=== PATIENT | female | born 1960 | race Caucasian/White ===

== ENCOUNTER → 2018-11-26 | Outpatient (CLI) | payer OTHER ==
[~2018-11-26] MED LIST: ASPI81EC; CALGLU500; CLON1; CLON2; IBUP600; INVEGA; METF500; MIRT15; MIRT30; PIOG15; RISP3; VALS80; VENL75; VENL75ER; [UNRECOGNIZED DRUG - OTHER]; [UNRECOGNIZED DRUG - REMARK]; [UNRECOGNIZED DRUG - REMARK]
== END ==
LOC: LAB SHORT 13:46 → PLD 13:46
DX: L57.0 Actinic keratosis (principal)
CPT/HCPCS: 88305

== ENCOUNTER 2019-01-17 16:14 | Emergency (ER) | payer OTHER ==
[~2019-01-17] VITALS: Ht 170.2 cm; Wt 131.5 kg
[2019-01-17 16:49] LABS: BASOPHILS ABSOLUTE AUTO 0.05 K/mm3 (0.00-0.23); BASOPHILS PERCENT AUTO 0 % (0-2); EOSINOPHILS PERCENT AUTO 0 % (0-6); Hematocrit 43.9 % (33.0-51.0); Hemoglobin 13.4 g/dL (11.5-16.0); IMMATURE GRAN ABSOLUTE AUTO 0.14 K/mm3 (0.00-0.10); IMMATURE GRAN PERCENT AUTO 1 % (0-1); LYMPHOCYTES ABSOLUTE AUTO 2.05 K/mm3 (0.84-5.20); LYMPHOCYTES PERCENT AUTO 13 % (21-46); MONOCYTES ABSOLUTE AUTO 0.91 K/mm3 (0.16-1.47); MONOCYTES PERCENT AUTO 6 % (4-13); Mean Corpuscular HGB 30.1 pg (26.0-34.0); Mean Corpuscular HGB Conc 30.5 g/dL (31.5-36.5); NEUTROPHILS ABSOLUTE AUTO 13.21 K/mm3 (1.96-9.15); NEUTROPHILS PERCENT AUTO 81 % (41-73); Platelet Count 237 K/mm3 (150-400); RDW Coefficient Variation 14.5 % (11.7-14.2); RDW Standard Deviation 52.6 fL (35.1-46.3); Red Blood Cell Count 4.45 M/mm3 (3.80-5.20); White Blood Cell Count 16.36 K/mm3 (4.00-11.30)
[2019-01-17 17:18] LABS: Alanine Aminotransfer (ALT/SGP 26 U/L (12-78); Albumin, Blood 3.3 g/dL (3.4-5.0); Albumin/Globulin Ratio 0.8 (0.8-1.8); Alk Phos 112 U/L (50-136); Anion Gap 10 mmol/L (6-16); Aspartate Aminotrans (AST/SGOT 20 U/L (12-37); Bilirubin, Total 0.3 mg/dL (0.1-1.0); Blood Urea Nitrogen 11 mg/dL (8-24); Bun/Creatinine Ratio 12.8 (12.0-20.0); CO2, Blood 23 mmol/L (21-32); Calcium, Blood 9.6 mg/dL (8.5-10.1); Chloride, Blood 104 mmol/L (98-108); Creatinine, Blood 0.86 mg/dL (0.40-1.00); Globulin, Blood 3.9 g/dL (2.2-4.0); Glomerular Filtration Rate >60 (60-); Glucose, Blood 166 mg/dL (70-99); Mean Corpuscular Volume 99 fL (80-100); Potassium, Blood 4.2 mmol/L (3.5-5.5); Sodium, Blood 137 mmol/L (136-145); Total Protein, Blood 7.2 g/dL (6.4-8.2)
[2019-01-17] MEDS ORDERED: INSULANPEN (17:42)
[2019-01-17] MEDS ORDERED: VENL150ER PO (17:42)
[2019-01-17] MEDS ORDERED: LISI5 PO (17:42)
[2019-01-17] MEDS ORDERED: CLOZ100 PO (17:42)
[2019-01-17] MEDS ORDERED: Pravachol40 MG PO (17:42)
[2019-01-17] MEDS ORDERED: NAC600 MG PO (17:42)
[2019-01-17] MEDS ORDERED: PALIPERIDONE ER9 MG PO (17:42)
[2019-01-17] MEDS ORDERED: ERGO400 PO (17:49)
[2019-01-17] MEDS ORDERED: LEVSOD150 PO (17:50)
[2019-01-17] MEDS ORDERED: Aspir 8181 MG PO (17:50)
[2019-01-17] MEDS ORDERED: TRAZ100 PO (17:52)
[2019-01-17] MEDS ORDERED: Humalog100 UNIT/1 (17:55)
[2019-01-17] MEDS ORDERED: Flagyl500 MG PO (19:30)
[2019-01-17] MEDS ORDERED: CIPR500 PO (19:30)
== END 2019-01-17 19:45 | disposition home or self-care (01) ==
LOC: ER 16:14
PROVIDERS: Physician Assistant
DX: A09 Infectious gastroenteritis and colitis, unspecified (principal); F17.210 Nicotine dependence, cigarettes, uncomplicated
CPT/HCPCS: 36415; 74177; 80053; 83690; 85025; 96361-59; 96374-59; 99284-25; A9270-GY; C9113; J7030; Q9967

== ENCOUNTER → 2019-01-23 | Outpatient (CLI) | payer OTHER ==
[~2019-01-23] MED LIST changes: +Aspir 8181 MG PO; +CIPR500 PO; +CLOZ100 PO; +ERGO400 PO; +Flagyl500 MG PO; +Humalog100 UNIT/1; +INSULANPEN; +LEVSOD150 PO; +LISI5 PO; +NAC600 MG PO; +PALIPERIDONE ER9 MG PO; +Pravachol40 MG PO; +TRAZ100 PO; +VENL150ER PO
[2019-01-23 11:37] LABS: Appearance, Urine Hazy (Clear); Bilirubin, Urine Neg (Neg); Blood, Urine Neg (Neg); Color, Urine Yellow (P-Yellow); Glucose Qualitative, Urine Neg (Neg); Ketones, Urine Neg (Neg); Leukocyte Esterase, Urine 3+ (Neg); Nitrite, Urine Neg (Neg); Protein, Urine Neg (Neg); Specific Gravity, Urine 1.015 (1.003-1.022); Urobilinogen, Urine NORM (Normal)
[2019-01-23 11:58] LABS: Bacteria Mod /hpf; Red Blood Cells, Urine 0-2 /hpf (0-2); Squamous Epithelial Cells Mod /hpf (Few)
[2019-01-23 14:02] LABS: Adenovirus F 40/41 Not Detected (NOT DETECT); Astrovirus Not Detected (NOT DETECT); Campylobacter Sp Not Detected (NOT DETECT); Cryptosporidium Not Detected (NOT DETECT); Cyclospora Cayetanensis Not Detected (NOT DETECT); E. Coli O157 Not Detected (NOT DETECT); Entamoeba Histolytica Not Detected (NOT DETECT); Enteroaggregative E. coli-EAEC Not Detected (NOT DETECT); Enteropathogenic E. coli-EPEC Not Detected (NOT DETECT); Enterotoxigenic E. coli-ETEC Not Detected (NOT DETECT); Giardia Lamblia Not Detected (NOT DETECT); Norovirus GI/GII Not Detected (NOT DETECT); Plesiomonas Shigelloides Not Detected (NOT DETECT); Rotavirus A Not Detected (NOT DETECT); Salmonella Sp Not Detected (NOT DETECT); Sapovirus Not Detected (NOT DETECT); Shiga Toxin-prod E. coli-STEC Not Detected (NOT DETECT); Shigella/Enteroin E. coli-EIEC Not Detected (NOT DETECT); Vibrio Cholerae Not Detected (NOT DETECT); Vibrio Sp Not Detected (NOT DETECT); Yersinia Enterocolitica Not Detected (NOT DETECT)
== END ==
LOC: LAB 11:08 → LAB SHORT 11:08
PROVIDERS: Nurse Practitioner Family
DX: R19.7 Diarrhea, unspecified (principal); R82.90 Unspecified abnormal findings in urine
CPT/HCPCS: 81001; 87086; 87507

== ENCOUNTER → 2019-03-30 | Outpatient (CLI) | payer OTHER | END | disposition home or self-care (01) | LOC: LAB SHORT 09:00 → LAB 09:00 | DX: R39.15 Urgency of urination (principal) | CPT/HCPCS: 87077; 87086; 87186 ==

== ENCOUNTER → 2019-04-17 | Outpatient (CLI) | payer OTHER ==
[2019-04-17 13:51] LABS: Campylobacter Sp Not Detected (NOT DETECT)
[2019-04-17 13:52] LABS: Adenovirus F 40/41 Not Detected (NOT DETECT); Astrovirus Not Detected (NOT DETECT); Cryptosporidium Not Detected (NOT DETECT); Cyclospora Cayetanensis Not Detected (NOT DETECT); E. Coli O157 Not Detected (NOT DETECT); Entamoeba Histolytica Not Detected (NOT DETECT); Enteroaggregative E. coli-EAEC Not Detected (NOT DETECT); Enteropathogenic E. coli-EPEC Not Detected (NOT DETECT); Enterotoxigenic E. coli-ETEC Not Detected (NOT DETECT); Giardia Lamblia Not Detected (NOT DETECT); Norovirus GI/GII Not Detected (NOT DETECT); Plesiomonas Shigelloides Not Detected (NOT DETECT); Rotavirus A Not Detected (NOT DETECT); Salmonella Sp Not Detected (NOT DETECT); Sapovirus Not Detected (NOT DETECT); Shiga Toxin-prod E. coli-STEC Not Detected (NOT DETECT); Shigella/Enteroin E. coli-EIEC Not Detected (NOT DETECT); Vibrio Cholerae Not Detected (NOT DETECT); Vibrio Sp Not Detected (NOT DETECT); Yersinia Enterocolitica Not Detected (NOT DETECT)
== END | disposition home or self-care (01) ==
LOC: LAB SHORT 08:02 → LAB 08:02
PROVIDERS: Nurse Practitioner Family
DX: R19.7 Diarrhea, unspecified (principal); R10.9 Unspecified abdominal pain
CPT/HCPCS: 0097U; 87324

== ENCOUNTER → 2019-04-29 | Outpatient (CLI) | payer OTHER | END | disposition home or self-care (01) | LOC: LAB 11:30 → LAB SHORT 11:30 | DX: R39.15 Urgency of urination (principal) | CPT/HCPCS: 87077; 87086; 87186 ==

== ENCOUNTER → 2019-05-15 | Outpatient (CLI) | payer OTHER ==
[2019-05-15 12:01] LABS: Creatinine, Urine Random 67.3 mg/dL (27.00-270.00)
[2019-05-15 12:03] LABS: Microalb/Creat Ratio UR, Rand 8.574 mg/g (0.000-30.000); Microalbumin, Random Urine 5.77 mg/L (0.000-20.000)
== END ==
LOC: LAB 10:01 → LAB SHORT 10:01
PROVIDERS: Nurse Practitioner Family
DX: E11.9 Type 2 diabetes mellitus without complications (principal)
CPT/HCPCS: 82043; 82570

== ENCOUNTER → 2019-06-04 | Outpatient (CLI) | payer OTHER | END | disposition home or self-care (01) | LOC: LAB SHORT 10:03 → LAB 10:03 | PROVIDERS: Nurse Practitioner Family | DX: Z12.4 Encounter for screening for malignant neoplasm of cervix (principal) | CPT/HCPCS: G0145 ==

== ENCOUNTER 2019-07-23 07:15 | Day surgery (SDC) | payer OTHER ==
[~2019-07-23] VITALS: Ht 170.2 cm; Wt 124.5 kg
[~2019-07-23 07:15] MED LIST changes: +ATOR40TA PO; +DULO30 PO; +PALI6TA PO
--- NOTE | 2019-07-23 08:04 | NUR ---
Ambulatory in Day Surgery History, Chart, Medications and Allergies reviewed before start of procedure.Lungs clear T/O to Auscultation. Patient confirms NPO status and agrees with scheduled surgery. Patient States Post-Procedure ride home has been arranged. Patient states colon prep results clear.
--- NOTE | 2019-07-23 08:38 | NUR ---
07/23/19 0838 Jim Pruitt PATIENT DETERMINED TO BE MODERATE SEDATION PRIOR TO START OF PROCEDURE BY 3-LEAD EKG REVIEWED WITH PHYSICIAN PRIOR TO START OF PROCEDURE.PATIENT CONFIRMS NPO STATUS AND AGREES WITH SCHEDULED PROCEDURE.History, Chart, Medications and Allergies reviewed before start of procedure.MONITOR INTACT WITH CONTINUOUS PULSE OXIMETRY AND INTERMITTENT BP.O2 VIA N/C INTACT THROUGHOUT SEDATION/PROCEDURE.
--- NOTE | 2019-07-23 10:44 | NUR ---
assumed care and received report for pt from ade cabrera rn pt drowsy, repostitioned her to a high semi strong and encouraged dbc. provided snack and fluid. will call [facility] when pt closer to being ready to go home.
--- NOTE | 2019-07-23 11:12 | NUR ---
Patient up to Ambulate independently. Gait steady. Patient States Post-Procedure ride home has been arranged. Discharge instructions reviewed with patient. Patient verbalizes understanding. Copy given to patient to take home. Discharged via wheelchair to private car for ride home. [facility] ride home
== END 2019-07-23 23:12 | disposition home or self-care (01) ==
LOC: ORSCMMR 07:15 → ORD 08:30 → ORSCMMR 08:30
DX: K62.5 Hemorrhage of anus and rectum (principal); K63.5 Polyp of colon; D12.2 Benign neoplasm of ascending colon; D12.3 Benign neoplasm of transverse colon; D12.4 Benign neoplasm of descending colon; D12.5 Benign neoplasm of sigmoid colon; K63.89 Other specified diseases of intestine; E11.9 Type 2 diabetes mellitus without complications; I10 Essential (primary) hypertension; Z86.73 Personal history of transient ischemic attack (TIA), and cerebral infarction without residual deficits; Z79.4 Long term (current) use of insulin; Z79.899 Other long term (current) drug therapy; F17.210 Nicotine dependence, cigarettes, uncomplicated; Z79.82 Long term (current) use of aspirin
CPT/HCPCS: 82947; 88305; J2250; J3010; J7120

== ENCOUNTER → 2020-05-25 | Outpatient (CLI) | payer OTHER ==
[~2020-05-25] MED LIST changes: +ATORVASTATIN CA40 M1 PO; +BASAGLAR K100 UNIT/3 SC; +CLOZARIL PO; +Calcium 600 W/1 EAC1 PO; +DULOXETINE HCL60 M1 PO; -Humalog100 UNIT/1; -INSULANPEN; +INSULANPEN SC; +LEVO-T150 MC1 PO; +Lisinopril2.5 MG PO; +N-ACETYL-L-CYS600 MG PO; +NOVOLOG FL100 UNIT/1 SC; +PALIPERIDONE ER3 MG PO; +PALIPERIDONE ER6 MG PO
== END | disposition home or self-care (01) ==
LOC: LAB SHORT 12:10 → PLD 12:10
DX: D48.7 Neoplasm of uncertain behavior of other specified sites (principal)
CPT/HCPCS: 88305

== ENCOUNTER → 2022-03-02 | Outpatient (CLI) | payer OTHER ==
[2022-03-03 13:30] LABS: Candida species (DNA Probe) Positive (NEGATIVE); G. vaginalis (DNA Probe) Negative (NEGATIVE); T. vaginalis (DNA Probe) Negative (NEGATIVE)
== END | disposition home or self-care (01) ==
LOC: LAB SHORT 17:52 → LAB 17:52
PROVIDERS: Nurse Practitioner Family
DX: N94.9 Unspecified condition associated with female genital organs and menstrual cycle (principal); N89.8 Other specified noninflammatory disorders of vagina
CPT/HCPCS: 87480; 87510; 87660

== ENCOUNTER → 2022-05-02 | Outpatient (CLI) | payer OTHER ==
[2022-05-03 10:22] LABS: Candida species (DNA Probe) Positive (NEGATIVE); G. vaginalis (DNA Probe) Negative (NEGATIVE); T. vaginalis (DNA Probe) Negative (NEGATIVE)
[2022-05-03 15:10] LABS: HPV 16 Negative (Negative); HPV 18 Negative (Negative); HPV OTHER HR TYPES Negative (Negative)
== END | disposition home or self-care (01) ==
LOC: LAB SHORT 10:47 → LAB 10:47
PROVIDERS: Advanced Practice Midwife
DX: Z01.419 Encounter for gynecological examination (general) (routine) without abnormal findings (principal); N76.0 Acute vaginitis
CPT/HCPCS: 87480; 87510; 87624; 87660; G0123

== ENCOUNTER → 2023-09-20 | Outpatient (CLI) | payer OTHER ==
[~2023-09-20] MED LIST changes: +ADMELOG100 UNIT/2 SC; +BASAGLAR K100 UNIT/1 SC; +TRAM50 PO
== END ==
LOC: LAB 08:54 → LAB SHORT 08:54
DX: E11.65 Type 2 diabetes mellitus with hyperglycemia (principal); Z79.4 Long term (current) use of insulin
CPT/HCPCS: 82043

== ENCOUNTER 2024-02-25 06:33 | Day surgery (SDC) | payer OTHER ==
[2024-02-25] VITALS (12 sets, daily range): BP systolic 125–167; BP diastolic 65–104
[~2024-02-25] VITALS: Ht 170.2 cm; Wt 117.3 kg
[~2024-02-25 06:33] MED LIST changes: +Diflucan150 MG PO; +INSULIN HUMALOG SC; +METF500 PO
[2024-02-25] MEDS ORDERED: Lactated Ringer's 1,000 ML IV SCH ×2 (07:05→09:45)
[2024-02-25] MEDS ORDERED: Ropivacaine 0.5% HCl/Pf 123.125 MG,EPINEPHrine HCL 0.25 MG,Ketorolac Tromethamine 15 MG... INFIL SCH (07:05)
[2024-02-25] MEDS ORDERED: Acetaminophen 500 MG Tab PO SCH ×2 (07:05→16:00)
[2024-02-25] MEDS ORDERED: Chlorhexidine Mouth Care 15 ML UDC MT SCH (07:05)
[2024-02-25] MEDS ORDERED: Tranexamic Acid 100 ML IV SCH (07:06)
[2024-02-25] MEDS ORDERED: CeFAZolin Sodium 2,000 MG in NS 100 ML IV SCH ×2 (07:25→16:45)
[2024-02-25] MEDS ORDERED: OxyCODONE HCL 10 MG TABCR PO SCH (07:25)
--- NOTE | 2024-02-25 08:07 | NUR ---
Ambulatory in Day Surgery. History, Chart, Medications and Allergies reviewed before start of procedure. Lungs clear T/O to Auscultation. Patient confirms NPO status and agrees with scheduled surgery. Pre-Op teaching done. Pt verbalizes understanding. PT BELONGINGS PLACED UNDERNEATH GURNEY FOR SAFEKEEPING. PT GLASSES TAKEN TO PACU FOR SAFEKEEPING.
--- NOTE | 2024-02-25 08:14 | NUR ---
0728 DR NICOLE AT BEDSIDE TO CONSULT PT FOR SURGERY. PER DR NICOLE, OKAY TO GIVE PT OXYCONTIN DESPITE CODEINE ALLERGY. PT STATES HER REACTION TO CODEINE WAS A RASH, BUT WOULD BE OKAY TO TAKE OXYCONTIN.
[2024-02-25] MEDS ORDERED: propofoL 20 ML IV ONE ×3 (08:40→10:04)
[2024-02-25] MEDS ORDERED: Ondansetron HCl 2 MG / ML 2ML Vial ONE (08:40)
[2024-02-25] MEDS ORDERED: Dexamethasone Sod Phos 10 MG/ML 1ML VIAL ONE (08:40)
[2024-02-25] MEDS ORDERED: Midazolam HCl 1MG / ML 2ML Vial ONE (09:00)
[2024-02-25] MEDS ORDERED: Ondansetron HCl 2 MG / ML 2ML Vial IV PRN (09:35)
[2024-02-25] MEDS ORDERED: DiphenhydrAMINE HCL 25 MG Cap PO PRN (09:35)
[2024-02-25] MEDS ORDERED: Bisacodyl 10 MG Supp PR PRN (09:35)
[2024-02-25] MEDS ORDERED: OxyCODONE HCL 5 MG TAB PO PRN ×2 (09:35)
[2024-02-25] MEDS ORDERED: HYDROmorphone HCl/Pf 1MG SYR IV PRN (09:40)
[2024-02-25] MEDS ORDERED: Promethazine HCl 25 MG Tab PO PRN (09:40)
[2024-02-25] MEDS ORDERED: Magnesium Hydroxide Conc 10 ML UDC PO PRN (09:45)
[2024-02-25] MEDS ORDERED: Metoclopramide HCl 5MG / ML 2ML Vial IV PRN (09:45)
[2024-02-25] MEDS ORDERED: Insulin Pump Cartridge MISC SC SCH (10:00)
[2024-02-25] MEDS ORDERED: Insulin Regular 100 UNIT/ML 10ML Vial SC SCH (11:30)
[2024-02-25] MEDS ORDERED: Ketorolac Tromethamine 15mg Vial IV SCH (12:00)
[2024-02-25] MEDS ORDERED: Insulin Human Lispro 100 Units/ML 3ML Syringe SC SCH (16:30)
--- NOTE | 2024-02-25 17:10 | NUR ---
SHIFT SUMMARY PT A&OX4, VSS/RA, PEDRO PO, VOIDING, AMB 1 PP MIN ASSIST W/FWW & GB, AMB TO BRP, UP TO CHAIR, PAIN MANAGED, IVF/ABX PER EMAR. WILL REPORT TO ONCOMING NOC RN.
[2024-02-25] MEDS ORDERED: Calcium/Vit D 600 mg-400 Unit Tab PO SCH (21:00)
[2024-02-25] MEDS ORDERED: CloZAPine 100 MG Tab PO SCH (21:00)
[2024-02-25] MEDS ORDERED: TraZODone HCl 100 MG Tab PO SCH (21:00)
[2024-02-25] MEDS ORDERED: Insulin Glargine-Yfgn 100 Unit/mL 3 ML SYR SC SCH (21:00)
[2024-02-25] MEDS ORDERED: Docusate Sodium 100 MG Cap PO SCH (21:00)
[2024-02-25] MEDS ORDERED: Paliperidone 1.5 MG TAB.ER.24 PO SCH (21:00)
--- NOTE | 2024-02-25 21:51 | NUR ---
PHYSICIAN COMMUNICATION PRIMARY ANTONIA KING CONCERNED W/GIVING 1ST DOSE IN HOSPITAL 57U LANTUS, CBG @242 & PT REFUSING TO HAVE HS SNACK. THIS NURSE CALLED DR NICOLE TO CONFIRM GIVING FULL DOSE OR ASKED IF HE WANTED 1/2 DOSE LANTUS & HE CONFIRMED TO GO AHEAD & GIVE 57U LANTUS. INFORMED PRIMARY ANTONIA KING.
[2024-02-26 00:03] VITALS: BP 110/50
[2024-02-26 04:34] VITALS: BP 122/91
--- NOTE | 2024-02-26 05:37 | NUR ---
SHIFT SUMMARY PT POD O RIGHT TOTAL KNEE. PT HAS RESTED T/O THE NIGHT. PAIN HAS BEEN CONTROLLED WITH MEDS PER EMAR. PT TOLEARING PO INTAKE, AMBULATING AND VOIDING. DRESSING C/D/I. VITALS ARE STABLE. PLAN IS FOR DISCHARGE TODAY.
[2024-02-26] MEDS ORDERED: Levothyroxine Sodium 0.15 MG Tab PO SCH (06:00)
[2024-02-26 06:16] LABS: BASOPHILS ABSOLUTE AUTO 0.04 K/mm3 (0.00-0.23); BASOPHILS PERCENT AUTO 0 % (0-2); EOSINOPHILS PERCENT AUTO 0 % (0-6); Hematocrit 39.4 % (33.0-51.0); Hemoglobin 12.6 g/dL (11.5-16.0); IMMATURE GRAN ABSOLUTE AUTO 0.32 K/mm3 (0.00-0.10); IMMATURE GRAN PERCENT AUTO 2 % (0-1); LYMPHOCYTES ABSOLUTE AUTO 1.22 K/mm3 (0.84-5.20); LYMPHOCYTES PERCENT AUTO 7 % (21-46); MONOCYTES ABSOLUTE AUTO 1.64 K/mm3 (0.16-1.47); MONOCYTES PERCENT AUTO 9 % (4-13); Mean Corpuscular HGB 29.1 pg (26.0-34.0); Mean Corpuscular Volume 91 fL (80-100); Mean Platelet Volume 10.3 fL (9.1-12.4); NEUTROPHILS ABSOLUTE AUTO 14.88 K/mm3 (1.96-9.15); NEUTROPHILS PERCENT AUTO 82 % (41-73); Platelet Count 205 K/mm3 (150-400); RDW Coefficient Variation 13.2 % (11.7-14.2); RDW Standard Deviation 44.6 fL (35.1-46.3); Red Blood Cell Count 4.33 M/mm3 (3.80-5.20)
[2024-02-26 06:43] LABS: Bun/Creatinine Ratio 19.8 (12.0-20.0); Calcium, Blood 9.4 mg/dL (8.5-10.1); Creatinine, Blood 0.86 mg/dL (0.40-1.00); Potassium, Blood 4.3 mmol/L (3.5-5.5)
[2024-02-26] MEDS ORDERED: Insulin Human Lispro 100 Units/ML 3ML Syringe SC SCH (07:30)
[2024-02-26 07:32] VITALS: BP 120/60
[2024-02-26] MEDS ORDERED: Atorvastatin 40 MG Tab PO SCH (09:00)
[2024-02-26] MEDS ORDERED: Aspirin 81 MG Chew PO SCH (09:00)
[2024-02-26] MEDS ORDERED: Lisinopril 5 MG Tab PO SCH (09:00)
[2024-02-26] MEDS ORDERED: MetFORMIN HCl 500 mg PO SCH (09:00)
--- NOTE | 2024-02-26 11:34 | NUR ---
DISCHARGE PT A&OX4, VSS/RA, PEDRO PO, VOIDING, AMB FWW/UP TO CHAIR, PAIN MANAGED, IV DC'D. DC INS PROVIDED. PT REP UNDERSTANDING THOSE INSTRUCTIONS INCLUDING ASA BID, PAIN MANAGEMENT/STOOL SOFTENER, DRESSING CHANGES, ICE/ELEVATE/SHORT FREQUENT WALKS WITH FWW AT ALL TIMES, COMPRESSION STOCKINGS. LEFT FLOOR VIA WC WITH PEDIATRIC GENETICIST TO GO HOME WITH SON WITH ALL PERSONAL POSSESSIONS INCLUDING DC PACKET, 2 AQUACEL DRESSINGS.
[2024-02-28] MEDS ORDERED: Fluconazole 100 MG Tab PO SCH (09:00)
== END 2024-02-26 09:45 | disposition home or self-care (01) ==
LOC: ORSCMMR 06:33 → ORD 08:15 → ORSCMMR 08:15 → SURS 11:01 → ORSCMMR 02-26 09:45
PROVIDERS: Orthopaedic Surgery
PROC: 0SRC0JA Replacement of Right Knee Joint with Synthetic Substitute, Uncemented, Open Approach (ICD-10-PCS; principal; 2024-02-25 08:15)
DX: M17.11 Unilateral primary osteoarthritis, right knee (principal); I10 Essential (primary) hypertension; K21.9 Gastro-esophageal reflux disease without esophagitis; E03.9 Hypothyroidism, unspecified; Z86.73 Personal history of transient ischemic attack (TIA), and cerebral infarction without residual deficits; E10.9 Type 1 diabetes mellitus without complications; Z79.4 Long term (current) use of insulin; Z79.899 Other long term (current) drug therapy; Z79.82 Long term (current) use of aspirin; E66.01 Morbid (severe) obesity due to excess calories; Z68.41 Body mass index [BMI] 40.0-44.9, adult
CPT/HCPCS: 36415; 73560-RT; 80048; 82947; 85025; 97110; 97116; 97162; A9270; C1776; J0171; J0690; J0735; J1100; J1815; J1885; J2250; J2405; J2704; J2795; J7120

== ENCOUNTER → 2024-03-16 | Outpatient (CLI) | payer OTHER ==
[~2024-03-16] MED LIST changes: +ALBU90OI INH; +Acetaminophen325 M1 PO; +DECADRON4 M1 PO; +DOCU100 PO; +INSULIN LI100 UNIT/6; +LOPE2C PO; +Norco 5-325 Ta1 EACH PO; +STEGLATRO15 MG PO; +[UNRECOGNIZED DRUG - CODE] PO
[2024-03-16 17:47] LABS: BASOPHILS ABSOLUTE AUTO 0.04 K/mm3 (0.00-0.23); BASOPHILS PERCENT AUTO 0 % (0-2); EOSINOPHILS PERCENT AUTO 0 % (0-6); Hematocrit 41.4 % (33.0-51.0); Hemoglobin 13.6 g/dL (11.5-16.0); IMMATURE GRAN ABSOLUTE AUTO 0.11 K/mm3 (0.00-0.10); IMMATURE GRAN PERCENT AUTO 1 % (0-1); LYMPHOCYTES ABSOLUTE AUTO 2.09 K/mm3 (0.84-5.20); LYMPHOCYTES PERCENT AUTO 18 % (21-46); MONOCYTES ABSOLUTE AUTO 0.96 K/mm3 (0.16-1.47); MONOCYTES PERCENT AUTO 8 % (4-13); Mean Corpuscular HGB 29.6 pg (26.0-34.0); Mean Corpuscular HGB Conc 32.9 g/dL (31.5-36.5); Mean Corpuscular Volume 90 fL (80-100); Mean Platelet Volume 10.9 fL (9.1-12.4); NEUTROPHILS ABSOLUTE AUTO 8.76 K/mm3 (1.96-9.15); NEUTROPHILS PERCENT AUTO 73 % (41-73); Platelet Count 314 K/mm3 (150-400); RDW Coefficient Variation 13.9 % (11.7-14.2); RDW Standard Deviation 46.1 fL (35.1-46.3); White Blood Cell Count 11.96 K/mm3 (4.00-11.30)
[2024-03-16 19:14] LABS: C-REACTIVE PROTEIN, EXT RANGE 0.988 mg/dL (0.000-0.300)
[2024-03-16 19:16] LABS: Albumin, Blood 3.6 g/dL (3.4-5.0); Bilirubin, Total 0.4 mg/dL (0.1-1.0); Bun/Creatinine Ratio 12.3 (12.0-20.0); Calcium, Blood 9.1 mg/dL (8.5-10.1); Creatinine, Blood 0.82 mg/dL (0.40-1.00); Globulin, Blood 3.6 g/dL (2.2-4.0); Potassium, Blood 4.4 mmol/L (3.5-5.5); Total Protein, Blood 7.2 g/dL (6.4-8.2)
== END ==
LOC: LAB 15:35 → LAB SHORT 15:35
PROVIDERS: Nurse Practitioner Family
DX: M25.561 Pain in right knee (principal)
CPT/HCPCS: 80053; 85025; 86140

== ENCOUNTER 2024-03-21 08:19 | Inpatient (IN) | payer OTHER ==
[~2024-03-21] VITALS: Ht 170.2 cm; Wt 114.0 kg
[~2024-03-21 08:19] MED LIST changes: -ALBU90OI INH; -Acetaminophen325 M1 PO; -DECADRON4 M1 PO; -DOCU100 PO; -INSULIN LI100 UNIT/6; -LOPE2C PO; -Norco 5-325 Ta1 EACH PO; -STEGLATRO15 MG PO; -[UNRECOGNIZED DRUG - CODE] PO
[2024-03-21] MEDS ORDERED: [UNRECOGNIZED DRUG - CODE] PO (08:54)
[2024-03-21] MEDS ORDERED: STEGLATRO15 MG PO (08:55)
[2024-03-21 08:56] LABS: BASOPHILS ABSOLUTE AUTO 0.02 K/mm3 (0.00-0.23); BASOPHILS PERCENT AUTO 0 % (0-2); EOSINOPHILS PERCENT AUTO 0 % (0-6); Hematocrit 38.2 % (33.0-51.0); Hemoglobin 12.3 g/dL (11.5-16.0); IMMATURE GRAN ABSOLUTE AUTO 0.08 K/mm3 (0.00-0.10); IMMATURE GRAN PERCENT AUTO 1 % (0-1); LYMPHOCYTES ABSOLUTE AUTO 0.58 K/mm3 (0.84-5.20); LYMPHOCYTES PERCENT AUTO 7 % (21-46); MONOCYTES ABSOLUTE AUTO 1.13 K/mm3 (0.16-1.47); MONOCYTES PERCENT AUTO 13 % (4-13); Mean Corpuscular HGB 29.4 pg (26.0-34.0); Mean Corpuscular HGB Conc 32.2 g/dL (31.5-36.5); Mean Corpuscular Volume 91 fL (80-100); Mean Platelet Volume 10.3 fL (9.1-12.4); NEUTROPHILS ABSOLUTE AUTO 6.61 K/mm3 (1.96-9.15); NEUTROPHILS PERCENT AUTO 79 % (41-73); Platelet Count 181 K/mm3 (150-400); RDW Coefficient Variation 14.3 % (11.7-14.2); RDW Standard Deviation 47.9 fL (35.1-46.3); Red Blood Cell Count 4.19 M/mm3 (3.80-5.20); White Blood Cell Count 8.42 K/mm3 (4.00-11.30)
[2024-03-21] MEDS ORDERED: Aspir 8181 MG PO (08:56)
[2024-03-21] MEDS ORDERED: INSULIN LI100 UNIT/6 (08:58)
[2024-03-21] MEDS ORDERED: PALIPERIDONE ER9 MG PO (08:58)
[2024-03-21 09:14] LABS: Albumin, Blood 3.3 g/dL (3.4-5.0); Albumin/Globulin Ratio 1.1 (0.8-1.8); Bilirubin, Total 0.3 mg/dL (0.1-1.0); Bun/Creatinine Ratio 13.3 (12.0-20.0); Calcium, Blood 8.5 mg/dL (8.5-10.1); Creatinine, Blood 1.05 mg/dL (0.40-1.00); Globulin, Blood 3.1 g/dL (2.2-4.0); Potassium, Blood 3.9 mmol/L (3.5-5.5); Total Protein, Blood 6.4 g/dL (6.4-8.2)
[2024-03-21] MEDS ORDERED: Dexamethasone Sod Phos 10 MG/ML 1ML VIAL IV ONE (09:40)
[2024-03-21] MEDS ORDERED: NS 1,000 ML IV SCH (10:00)
[2024-03-21] MEDS ORDERED: Remdesivir (EUA) 200 MG in NS 250 ML IV ONE (12:10)
[2024-03-21] MEDS ORDERED: Acetaminophen 325 MG TABLET PO PRN (12:10)
[2024-03-21] MEDS ORDERED: Ipratropium/Albuterol SulF 2.5-0.5MG/3 ML Amp INH PRN (12:10)
[2024-03-21] MEDS ORDERED: Albuterol 2.5 MG/3 ML VIAL INH PRN (12:10)
[2024-03-21 15:07] VITALS: BP 122/63
[2024-03-21] MEDS ORDERED: Norco 5-325 Ta1 EACH PO (15:26)
[2024-03-21] MEDS ORDERED: LOPE2C PO (15:41)
[2024-03-21] MEDS ORDERED: Insulin Human Lispro 100 Units/ML 3ML Syringe SC SCH (16:30)
--- NOTE | 2024-03-21 16:55 | NUR ---
ADMISSION NOTE: PATIENT ARRIVES TO ROOM AT 1500 VIA GURNEY FROM ER FOR DX'S OF ACUTE HYPOXIC RESP FAILURE. PATIENT TRANSFERRED TO BED USING SLIDER SHEET c 3 MAX ASSIST. PATIENT ORIENTATED TO ROOM AND CALL SYSTEM. ADMISSION, MEDRIC AND SKIN ASSESSMENT c 2 RN'S VERIFIED COMPLETED. PATIENT A/OX4, ANSWER TO QUESTIONS APPROPRIATELY AND ABLE TO MAKE NEEDS KNOWN. PATIENT DENIES CP/PRESSURE, SOB, DIZZINESS AND N/V. PATIENT ON 2L O2 VIA NC SATTING AT 94%, RA AT BASELINE. LUNGS CLEAR T/O TO AUSCULTATION. SENSATIONS INTACT, REPORTS WEAKNESS AND HAS NOT BEEN AMBULATING FOR A MONTH. PATIENT REPORTS SHE HAD R TOTAL KNEE REPLACED A MONTH OR 2 AGO AND DID WORK c PT/OT AT OUTPT [facility]. PATIENT HAS PT/OT ORDERED. PATIENT CONT/INCON OF BOWEL/BLADDER, ATTENDS AND PUREWICK SYSTEM IN PLACED. PATIENT RESTING IN BED AT THIS TIME. BED ALARM ON FOR SAFETY. CALL LIGHT IN REACH.
[2024-03-21 20:38] VITALS: BP 133/72
[2024-03-21] MEDS ORDERED: TraZODone HCl 100 MG Tab PO SCH (21:00)
[2024-03-21] MEDS ORDERED: CloZAPine 100 MG Tab PO SCH (21:00)
[2024-03-21] MEDS ORDERED: Insulin Glargine-Yfgn 100 Unit/mL 3 ML SYR SC SCH (21:00)
[2024-03-22] MEDS ORDERED: Ondansetron HCl 2 MG / ML 2ML Vial IV PRN (03:55)
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
[2024-03-22 05:58] VITALS: BP 120/65
[2024-03-22 05:58] LABS: Bun/Creatinine Ratio 22.2 (12.0-20.0); Calcium, Blood 8.7 mg/dL (8.5-10.1); Creatinine, Blood 0.86 mg/dL (0.40-1.00); Potassium, Blood 4.5 mmol/L (3.5-5.5)
[2024-03-22] MEDS ORDERED: Levothyroxine Sodium 0.15 MG Tab PO SCH (06:00)
[2024-03-22 07:24] VITALS: BP 137/81
[2024-03-22] MEDS ORDERED: N-Acetylcysteine 600 MG CAP PO SCH (09:00)
[2024-03-22] MEDS ORDERED: Atorvastatin 40 MG Tab PO SCH (09:00)
[2024-03-22] MEDS ORDERED: Enoxaparin 40 MG/0.4 ML SYR SC SCH (09:00)
[2024-03-22] MEDS ORDERED: Paliperidone 1.5 MG TAB.ER.24 PO SCH (09:00)
[2024-03-22] MEDS ORDERED: Magnesium Hydroxide Conc 10 ML UDC PO SCH (09:00)
[2024-03-22] MEDS ORDERED: Docusate Sodium 100 MG Cap PO SCH (09:00)
[2024-03-22] MEDS ORDERED: dexAMETHasone 4 MG TAB PO SCH (09:00)
[2024-03-22] MEDS ORDERED: Aspirin 81 MG Chew PO SCH (09:00)
[2024-03-22] MEDS ORDERED: NS 250 ML IV PRN (11:35)
[2024-03-22] MEDS ORDERED: Remdesivir (EUA) 100 MG in NS 250 ML IV SCH (12:00)
[2024-03-22 15:22] VITALS: BP 141/77
--- NOTE | 2024-03-22 17:23 | NUR ---
SHIFT SUMMARY: PATIENT A/OX4, PLEASANT AND COOPERATIVE c CARE. PATIENT DENIES CP/PRESSURE, SOB AND DIZZINESS. PATIENT ON RA SATTING 94-95%. PATIENT WORK c PT EVAL TODAY, RECOMMENDING OUTPT SERVICES. PER PT PATIENT IS ABLE TO MOVE AROUND c FWW/SUPERVISION IN ROOM FOR SAFETY. AFTER WORKING c PT PATIENT REQUESTED TO STAY IN BED AND TO CONTINUE USING PUREWICK SYSTEM FOR VOIDING . THIS RN EDUCATE PATIENT THE IMPORTANCE OF GETTING OOB, SITTING UP IN CHAIR AND USING THE BATHROOM c GARDENING MANAGER FOR VOIDING. AT FIRST PATIENT WAS HESITANT TO BE OFF THE PUREWICK AND REPORTS THAT SHE IS NOT ABLE TO AMBULATES TO BATHROOM BECAUSE SHE IS "TIRED AND WEAK" ENCOURAGE PATIENT TO TRY SITTING UP IN THE CHAIR AND AMBULATES TO BATHROOM c GARDENING MANAGER WHICH SHE DID AGREED. PATIENT SAT UP IN THE RECLINER CHAIR FOR ABOUT 5 HRS AND AMBULATED TO BATHROOM c SBA/FWW T/O THE SHIFT. PATIENT REPORTS "I FEEL BETTER AND I'M GLAD THAT I DID IT." PATIENT IS CAPABLE OF PERFORMING HER ADL'S c AN GARDENING MANAGER, BUT SHE NEEDS MORE ENCOURAGEMENT AND MOTIVATION; OTHERWISE, SHE PREPARES TO STAY IN BED AND CARES PROVIDED FOR HER. PATIENT RECEIVED 1ST DOSE OF IV REMDESIVIR TODAY, DROPLET ISOLATION FOR COVID POSITIVE. CBG'S 132-BEFORE BREAKFAST, 213-BEFORE LUNCH AND 243 BEFORE DINNER, MEDICATED c INSULIN PER EMAR SLIDING COVERAGE. VITAL SIGNS REVIEWED. PATIENT ASSISTED BACK IN BED AT THIS TIME. CALL LIGHT IN REACH.
[2024-03-22 20:17] VITALS: BP 141/77
[2024-03-23 04:30] VITALS: BP 150/78
--- NOTE | 2024-03-23 04:35 | NUR ---
SHIFT SUMMARY PATIENT REMAINED IN COVID ISOLATION. WAS COMPLIANT AND EASY TO GET ALONG WITH.GIVEN PRN TYLENOL FOR GENERAL DISCOMFORTS. SALINE LOCK FLUSHED. WAS UP TO THE BR TO VOID SHE WAS INSTRUCTED TO NOT WET HERSELF.
[2024-03-23 07:51] VITALS: BP 128/74
[2024-03-23] MEDS ORDERED: Acetaminophen325 M1 PO (14:16)
[2024-03-23] MEDS ORDERED: DECADRON4 M1 PO (14:17)
[2024-03-23] MEDS ORDERED: DOCU100 PO (14:17)
[2024-03-23] MEDS ORDERED: ALBU90OI INH (14:19)
== END 2024-03-23 15:02 | disposition home health service (06) | DRG 177 ==
LOC: ER 08:19 → MEDS 11:55
PROVIDERS: Emergency Medicine; ADMIT Internal Medicine
PROC: XW033E5 Introduction of Remdesivir Anti-infective into Peripheral Vein, Percutaneous Approach, New Technology Group 5 (ICD-10-PCS; principal; 2024-03-22)
PROC: 3E0DX3Z Introduction of Anti-inflammatory into Mouth and Pharynx, External Approach (ICD-10-PCS; 2024-03-22)
DX: U07.1 COVID-19 (principal); J12.82 Pneumonia due to coronavirus disease 2019; J96.01 Acute respiratory failure with hypoxia; E11.9 Type 2 diabetes mellitus without complications; E78.5 Hyperlipidemia, unspecified; I10 Essential (primary) hypertension; F25.9 Schizoaffective disorder, unspecified; E89.0 Postprocedural hypothyroidism; Z99.81 Dependence on supplemental oxygen; S80.01XA Contusion of right knee, initial encounter; W18.30XA Fall on same level, unspecified, initial encounter; Z90.49 Acquired absence of other specified parts of digestive tract; Z90.89 Acquired absence of other organs; Z98.890 Other specified postprocedural states; Z98.51 Tubal ligation status; Z88.5 Allergy status to narcotic agent; Z88.8 Allergy status to other drugs, medicaments and biological substances; Z91.040 Latex allergy status; Z79.82 Long term (current) use of aspirin; Z79.899 Other long term (current) drug therapy; Z79.4 Long term (current) use of insulin; Z79.890 Hormone replacement therapy; Z79.84 Long term (current) use of oral hypoglycemic drugs; Z87.891 Personal history of nicotine dependence
CPT/HCPCS: 36415; 71045; 73562-RT; 80048; 80053; 82947; 85025; 94760; 96361; 96365; 96375; 97110; 97112; 97161; 97165; 97535; 99285-25; A9270; J0248; J1100; J1650; J1815; J7030; J7050

== ENCOUNTER → 2024-03-27 | Outpatient (CLI) | payer OTHER ==
[~2024-03-27] MED LIST changes: +ALBU90OI INH; +Acetaminophen325 M1 PO; +DECADRON4 M1 PO; +DOCU100 PO; +INSULIN LI100 UNIT/6; +LOPE2C PO; +Norco 5-325 Ta1 EACH PO; +STEGLATRO15 MG PO; +[UNRECOGNIZED DRUG - CODE] PO
[2024-03-27 18:57] LABS: BASOPHILS ABSOLUTE AUTO 0.06 K/mm3 (0.00-0.23); BASOPHILS PERCENT AUTO 0 % (0-2); EOSINOPHILS ABSOLUTE AUTO 0.01 K/mm3 (0.00-0.68); EOSINOPHILS PERCENT AUTO 0 % (0-6); Hematocrit 44.9 % (33.0-51.0); Hemoglobin 14.6 g/dL (11.5-16.0); IMMATURE GRAN ABSOLUTE AUTO 0.59 K/mm3 (0.00-0.10); IMMATURE GRAN PERCENT AUTO 3 % (0-1); LYMPHOCYTES ABSOLUTE AUTO 1.32 K/mm3 (0.84-5.20); LYMPHOCYTES PERCENT AUTO 7 % (21-46); MONOCYTES ABSOLUTE AUTO 0.98 K/mm3 (0.16-1.47); MONOCYTES PERCENT AUTO 6 % (4-13); Mean Corpuscular HGB 28.6 pg (26.0-34.0); Mean Corpuscular HGB Conc 32.5 g/dL (31.5-36.5); Mean Corpuscular Volume 88 fL (80-100); Mean Platelet Volume 10.9 fL (9.1-12.4); NEUTROPHILS ABSOLUTE AUTO 14.94 K/mm3 (1.96-9.15); NEUTROPHILS PERCENT AUTO 83 % (41-73); Platelet Count 270 K/mm3 (150-400); RDW Coefficient Variation 13.5 % (11.7-14.2); RDW Standard Deviation 43.5 fL (35.1-46.3)
== END | disposition home or self-care (01) ==
LOC: LAB 18:21 → LAB SHORT 18:21
PROVIDERS: Nurse Practitioner Family
DX: U07.1 COVID-19 (principal); J12.82 Pneumonia due to coronavirus disease 2019; E11.9 Type 2 diabetes mellitus without complications; Z79.4 Long term (current) use of insulin
CPT/HCPCS: 85025

== ENCOUNTER → 2024-04-15 | Outpatient (CLI) | payer OTHER ==
[2024-04-15 13:13] LABS: BASOPHILS ABSOLUTE AUTO 0.03 K/mm3 (0.00-0.23); BASOPHILS PERCENT AUTO 0 % (0-2); EOSINOPHILS ABSOLUTE AUTO 0.01 K/mm3 (0.00-0.68); EOSINOPHILS PERCENT AUTO 0 % (0-6); Hematocrit 42.9 % (33.0-51.0); Hemoglobin 13.9 g/dL (11.5-16.0); IMMATURE GRAN ABSOLUTE AUTO 0.09 K/mm3 (0.00-0.10); IMMATURE GRAN PERCENT AUTO 1 % (0-1); LYMPHOCYTES ABSOLUTE AUTO 1.37 K/mm3 (0.84-5.20); LYMPHOCYTES PERCENT AUTO 14 % (21-46); MONOCYTES PERCENT AUTO 7 % (4-13); Mean Corpuscular HGB 28.8 pg (26.0-34.0); Mean Corpuscular HGB Conc 32.4 g/dL (31.5-36.5); Mean Corpuscular Volume 89 fL (80-100); NEUTROPHILS ABSOLUTE AUTO 7.75 K/mm3 (1.96-9.15); NEUTROPHILS PERCENT AUTO 78 % (41-73); RDW Coefficient Variation 13.8 % (11.7-14.2); RDW Standard Deviation 45.1 fL (35.1-46.3); Red Blood Cell Count 4.83 M/mm3 (3.80-5.20); White Blood Cell Count 9.95 K/mm3 (4.00-11.30)
[2024-04-15 14:04] LABS: Alanine Aminotransfer (ALT/SGP 21 U/L (12-78); Albumin, Blood 3.6 g/dL (3.4-5.0); Alk Phos 121 U/L (50-136); Anion Gap 11 mmol/L (3-11); Aspartate Aminotrans (AST/SGOT 13 U/L (12-37); Bilirubin, Total 0.4 mg/dL (0.1-1.0); Blood Urea Nitrogen 17 mg/dL (8-24); CHOL/HDL RATIO 2.1; CO2, Blood 23 mmol/L (21-32); Calcium, Blood 9.4 mg/dL (8.5-10.1); Chloride, Blood 106 mmol/L (98-108); Cholesterol 136 mg/dL (50-200); Globulin, Blood 3.7 g/dL (2.2-4.0); Glucose, Blood 206 mg/dL (70-99); HDL Cholesterol 64 mg/dL (>39); LDL/HDL RATIO 0.3; Low Density Lipoprotein Chol 20 mg/dL (0-110); Sodium, Blood 136 mmol/L (136-145); Total Protein, Blood 7.3 g/dL (6.4-8.2); Triglycerides 262 mg/dL (30-160); Very Low Density Lipoprot Chol 52 mg/dL (6-32)
[2024-04-15 14:11] LABS: Bun/Creatinine Ratio 21.3 (12.0-20.0); Glomerular Filtration Rate 83 (60-)
[2024-04-15 15:46] LABS: Mean Platelet Volume 11.1 fL (9.1-12.4); Platelet Count 185 K/mm3 (150-400)
== END | disposition home or self-care (01) ==
LOC: LAB SHORT 10:00 → LAB 10:00
PROVIDERS: Nurse Practitioner Family
DX: Z13.220 Encounter for screening for lipoid disorders (principal); E78.5 Hyperlipidemia, unspecified; I70.0 Atherosclerosis of aorta; E11.9 Type 2 diabetes mellitus without complications; R94.6 Abnormal results of thyroid function studies
CPT/HCPCS: 80053; 80061; 83036; 84443; 85025

== ENCOUNTER → 2025-03-03 | Outpatient (CLI) | payer OTHER ==
[2025-03-03 17:17] LABS: Bacterial Vaginosis PCR Negative (NEGATIVE); Candida Group, PCR NOT DETECTED (NOT DETECT); Candida glabrata-krusei, PCR NOT DETECTED (NOT DETECT)
== END ==
LOC: LAB 13:59 → LAB SHORT 13:59
PROVIDERS: Advanced Practice Midwife
DX: N76.0 Acute vaginitis (principal)
CPT/HCPCS: 81515